=== PATIENT | female | born 1980 ===

== ENCOUNTER → 2019-05-15 09:42 | Outpatient (CLI) | payer OTHER, SELFPAY ==
--- NOTE | 2019-05-15 | DI.MG.S_ITS ---
BILATERAL DIGITAL DIAGNOSTIC MAMMOGRAM 3D/2D: 05/15/2019 CLINICAL: Mastodynia. Comparison is made to exams dated: 04/13/2019 ultrasound and 08/17/2017 mammogram - [facility]. The tissue of both breasts is heterogeneously dense. This may lower the sensitivity of mammography. No significant masses, calcifications, or other findings are seen in either breast. IMPRESSION: NEGATIVE There is no abnormality seen in the left breast to correspond with the ultrasound finding in the left breast at 1:30 o'clock on the outside study dated 04/13/19. There is no abnormality seen in the left breast to correspond with the area of pain from 12-1 o'clock. However, clinical followup is recommended. There is no mammographic evidence of malignancy. Of note, a follow-up left ultrasound in 6 months is recommended to demonstrate stability of the previous ultrasound finding at at 1:30 o'clock in the left breast. This exam was interpreted at Station ID: [id number]. NOTE: For mammograms, a report in lay terms will be sent to the patient. Approximately 15% of breast malignancies will not be visualized mammographically. In the management of a palpable breast mass, a negative mammogram must not discourage biopsy of a clinically suspicious lesion. Electronically Signed By: Nadia Daley M.D. lk/:05/15/2019 10:26:44 letter sent: Clinical Evaluation ACR BI-RADS Category 1: Negative 3341F
== END ==
PROVIDERS: Family Provider Family Medicine; PCP Family Medicine; Visit Provider Internal Medicine
DX: R92.8 Other abnormal and inconclusive findings on diagnostic imaging of breast (principal); N64.4 Mastodynia
CPT/HCPCS: 77066; G0279